=== PATIENT | female | born 1980 | race Caucasian/White ===

== ENCOUNTER 2016-04-27 18:33 | Emergency (ER) | payer BC ==
--- NOTE | 2016-04-27 18:43 | PDOC ---
Rapid Medical Evaluation Time Seen by Provider: 04/27/16 18:41 Medical Evaluation: 04/27/16 18:41 35 year old female with left upper back pain and chest "heaviness" worsening since Sunday. No SOB. No cough. Non-smoker. No OCP. V/s notable for HR 111. -EKG -Pgu -CXR -To Main ED for further evaluation
[2016-04-27 18:45] VITALS: BP 123/70; PULSE 111; TEMP 98.4; BMI 34.8
--- NOTE | 2016-04-27 20:03 | PDOC ---
History of Present Illness - General History Source: Patient Exam Limitations: No Limitations - History of Present Illness Initial Comments: 04/27/16 20:25 The patient is a 35 year old female with no significant past medical history who presents to the emergency department today for further evaluation of intermittent chest and back pain for 5 days. The patient reports that on Sunday she began experiencing tingling and numbing chest pain while sitting down. The patient reported that the pain radiated from her left breast region to her upper back. On sunday the patient treated her pain by getting a massage and using an icy hot patch and symptoms resolved. She states that yesterday the pain arose again. The patient notes that the pain may be related to increased stress at home. The patient denies any shortness of breath, diaphoresis, or palpitations. <Taiwo Beverly - Last Filed: 04/27/16 20:29> - General History Source: Patient <Chris Arias - Last Filed: 04/27/16 20:53> - General Chief Complaint: Chest Pain Stated Complaint: PAIN Time Seen by Provider: 04/27/16 18:41 Past History <Taiwo Beverly - Last Filed: 04/27/16 20:29> - Psycho/Social/Smoking Cessation Hx Suicidal Ideation: No Smoking History: Never smoked Information on smoking cessation initiated: No <Chris Arias - Last Filed: 04/27/16 20:53> - Past Medical History Allergies/Adverse Reactions: Allergies Allergy/AdvReac Type Severity Reaction Status Date / Time No Known Allergies Allergy Verified 04/27/16 18:44 Home Medications: Ambulatory Orders Ibuprofen 800 mg PO TID #30 tablet 04/27/16 Methocarbamol [Robaxin -] 500 mg PO TID #30 tablet 04/27/16 Review of Systems - Review of Systems Able to Perform ROS?: Yes Comments:: 04/27/16 20:26 CONSTITUTIONAL: Absent: fever, chills, diaphoresis, generalized weakness, malaise, loss of appetite HEENT: Absent: rhinorrhea, nasal congestion, throat pain, throat swelling, difficulty swallowing, mouth swelling, ear pain, eye pain, visual Changes CARDIOVASCULAR: Present: Chest pain Absent: syncope, palpitations, irregular heart rate, lightheadedness, peripheral edema RESPIRATORY: Absent: cough, shortness of breath, dyspnea with exertion, orthopnea, wheezing, stridor, hemoptysis GASTROINTESTINAL: Absent: abdominal pain, abdominal distension, nausea, vomiting, diarrhea, constipation, melena, hematochezia GENITOURINARY: Absent: dysuria, frequency, urgency, hesitancy, hematuria, flank pain, genital pain MUSCULOSKELETAL: Present: Back pain Absent: Arthralgia, joint swelling SKIN: Absent: rash, itching, pallor HEMATOLOGIC/IMMUNOLOGIC: Absent: easy bleeding, easy bruising, lymphadenopathy, frequent infections ENDOCRINE: Absent: unexplained weight gain, unexplained weight loss, heat intolerance, cold intolerance NEUROLOGIC: Absent: headache, focal weakness or paresthesias, dizziness, unsteady gait, seizure, mental status changes, bladder or bowel incontinence PSYCHIATRIC: Absent: anxiety, depression, suicidal or homicidal ideation, hallucinations. <Taiwo Beverly - Last Filed: 04/27/16 20:29> *Physical Exam - Vital Signs Last Vital Signs Temp Pulse Resp BP Pulse Ox 98.4 F 111 H 18 123/70 98 04/27/16 18:41 04/27/16 18:41 04/27/16 18:41 04/27/16 18:41 04/27/16 18:41 - Physical Exam Comments: 04/27/16 20:26 GENERAL: Well developed, well nourished. Awake and alert. In no acute distress. HEENT: Normocephalic, atraumatic. PERRLA, EOMI. No conjunctival pallor. Sclerae are non -icteric. Moist mucous membranes. Oropharynx is clear. NECK: Supple. Full ROM. No JVD. Carotid pulses 2+ and symmetric, without bruits. No thyromegaly. No lymphadenopathy. CARDIOVASCULAR: Regular rate and rhythm. No murmurs, rubs, or gallops. Distal pulses are 2+ and symmetric. PULMONARY: No evidence of respiratory distress. Lungs clear to auscultation bilaterally. No wheezing, rales or rhonchi. ABDOMINAL: Soft. Non-tender. Non-distended. No rebound or guarding. No organomegaly. Normoactive bowel sounds. MUSCULOSKELETAL Normal range of motion at all joints. No bony deformities or tenderness. No CVA tenderness. EXTREMITIES: No cyanosis. No clubbing. No edema. No calf tenderness. SKIN: Warm and dry. Normal capillary refill. No rashes. No jaundice. NEUROLOGICAL: Alert, awake, appropriate. Cranial nerves 2-12 intact. No deficits to light touch and temperature in face, upper extremities and lower extremities. No motor deficits in the in face, upper extremities and lower extremities. Normoreflexic in the upper and lower extremities. Normal speech. Toes are downgoing bilaterally. Gait is normal without ataxia. PSYCHIATRIC: Cooperative. Good eye contact. Appropriate mood and affect <Taiwo Beverly - Last Filed: 04/27/16 20:29> - Vital Signs Last Vital Signs Temp Pulse Resp BP Pulse Ox 98.4 F 111 H 18 123/70 98 04/27/16 18:41 04/27/16 18:41 04/27/16 18:41 04/27/16 18:41 04/27/16 18:41 <Chris Arias - Last Filed: 04/27/16 20:53> Heart Score/ECG Review - ECG Impressions Comment:: 04/27/16 20:29 1. ECG IMPRESSION: Normal sinus rhythm. Nonspecific ST and T wave abnormality. Abnormal ECG. <Taiwo Beverly - Last Filed: 04/27/16 20:29> Medical Decision Making - Medical Decision Making 04/27/16 20:49 Dr. Arias: The scribe's documentation has been prepared under my direction and personally reviewed by me in its entirery. I confirm that the note above accurately reflects all work, treatment, procedures, and medical decision making performed by me. EKG and chest xray both negative. Pt with no cardiac risk. Pt will be discharged. Follow up with pcp. <Chris Arias - Last Filed: 04/27/16 20:53> *DC/Admit/Observation/Transfer - Attestations Scribe Attestion: 04/27/16 20:27 Documentation prepared by Taiwo Beverly, acting as medical staff director for Chris Arias MD. <Taiwo Beverly - Last Filed: 04/27/16 20:29> - Discharge Dispostion Admit: No <Chris Arias - Last Filed: 04/27/16 20:53> Diagnosis at time of Disposition: Musculoskeletal chest pain - Discharge Dispostion Disposition: HOME Condition at time of disposition: Stable - Prescriptions Prescriptions: Ibuprofen 800 mg PO TID #30 tablet Methocarbamol [Robaxin -] 500 mg PO TID #30 tablet - Referrals Referrals: Anette Herrera MD [Staff Physician] - Chapo Lyman MD [Staff Physician] - - Patient Instructions Printed Discharge Instructions: DI for Musculoskeletal Pain Additional Instructions: Make appointments with the doctors referred to you if symptoms don't improve. TAke medications as directed.
[2016-04-27] MEDS ORDERED: METHOCARBAMOL 500 MG TABLET PO ONE (20:21)
[2016-04-27] MEDS ORDERED: IBUPROFEN 400 MG TABLET (FP) PO ONE ×2 (20:21→20:31)
[2016-04-27] MEDS ORDERED: METHOCARBAMOL 500 MG TABLET ONE (20:30)
--- NOTE | 2016-04-28 10:05 | EKG ---
Test Reason : Blood Pressure : / mmHG Vent. Rate : 098 BPM Atrial Rate : 098 BPM P-R Int : 156 ms QRS Dur : 084 ms QT Int : 346 ms P-R-T Axes : 039 031 010 degrees QTc Int : 441 ms NORMAL SINUS RHYTHM NONSPECIFIC ST AND T WAVE ABNORMALITY ABNORMAL ECG NO PREVIOUS ECGS AVAILABLE Confirmed by JASIEL ROSS MD ([id number]) on 04/28/2016 10:04:54 AM Referred By: Confirmed By:JASIEL ROSS MD
== END 2016-04-27 21:08 | disposition home or self-care (01) ==
LOC: JER 18:33
DX: R07.89 Other chest pain (principal)
CPT/HCPCS: 71020-TC; 93005; 93010; 99283-25